=== PATIENT | female | born 1950 | race Caucasian/White ===

== ENCOUNTER 2016-08-02 18:00 | Emergency (ER) | payer MEDICARE, MEDICAID ==
[2016-08-02] MEDS ORDERED: Diatrizoate Meglumine/Diatri 30 mL Sol ONE (18:04)
[2016-08-02 18:07] VITALS: BP 106/60
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
--- NOTE | 2016-08-03 09:44 | Diagnostic Imaging Report ---
KUB abdominal film (upper GI, limited) HISTORY: Gastrostomy tube placement Water-soluble contrast was instilled through the patient's gastrostomy tube. There is opacification of the gastric lumen with flow contrast into the duodenum. IMPRESSION: 1. Confirmation of gastrostomy tube within the gastric lumen
== END 2016-08-02 18:26 | disposition home or self-care (01) ==
LOC: ER 18:00
DX: Z43.1 Encounter for attention to gastrostomy (principal); G82.50 Quadriplegia, unspecified
CPT/HCPCS: 74000-TC; Z7502

== ENCOUNTER 2016-08-05 11:25 | Emergency (ER) | payer MEDICARE, MEDICAID ==
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
[2016-08-05] MEDS ORDERED: Diatrizoate Meglumine/Diatri 30 mL Sol ONE (11:27)
--- NOTE | 2016-08-05 14:05 | Diagnostic Imaging Report ---
Upper GI, Limited History: G-tube placement Comparison: KUB on 08/02/2016 Technique/procedure: Exam is limited as saxophone assembler view was not obtained. There is contrast opacification of the stomach and proximal small bowel via patient's G-tube. There also appears to be old contrast within the large bowel from previous procedure. An IVC filter is noted at the L3 level. Degenerative changes of the spine are noted. IMPRESSION: Intraluminal confirmation of patient's percutaneous gastric feeding tube.
== END 2016-08-05 11:46 | disposition home or self-care (01) ==
LOC: ER 11:25
DX: Z43.1 Encounter for attention to gastrostomy (principal); R03.0 Elevated blood-pressure reading, without diagnosis of hypertension; Z88.8 Allergy status to other drugs, medicaments and biological substances
CPT/HCPCS: Z7502; Z7610